=== PATIENT | male | born 1995 | race Caucasian/White ===

== ENCOUNTER 2020-01-25 13:47 | Outpatient (CLI) | payer BC, SELFPAY ==
--- NOTE | ~2020-01-25 | XR_ITS ---
EXAMINATION: XR forearm RT 2V DATE: 01/25/2020 14:08 INDICATION: Ulnar-sided right forearm pain. TECHNIQUE: AP an lateral views of the right forearm were obtained. COMPARISON: none FINDINGS: Alignment is normal. No fracture. Joint spaces are normal. Soft tissues are unremarkable. No elbow stephanie int effusion. IMPRESSION: 1. Negative right forearm radiographs. Reviewed, dictated and finalized at location A.
== END 2020-01-25 13:48 | disposition home or self-care (01) ==
PROVIDERS: PCP Physician Assistant; Visit Provider Physician Assistant
DX: M79.601 Pain in right arm (principal)
CPT/HCPCS: 73090

== ENCOUNTER 2021-08-05 13:43 | Emergency (ER) | payer BC, SELFPAY ==
--- NOTE | ~2021-08-05 | CT_ITS ---
EXAMINATION: CT cervical spine wo con DATE: 08/05/2021 14:13 INDICATION: Posterior head injury post fall while playing hockey TECHNIQUE: Computed tomography (CT) of the cervical spine was performed without intravenous contrast. Automated exposure control and iterative reconstruction technique were employed. The dose-length pro duct was 466.49 mGy-cm. COMPARISON: None FINDINGS: Mild levocurvature at the cervicothoracic junction. Sagittal alignment is normal. Vertebral body heig hts are normal. No fracture. Mild disc height loss at C5-C6 with suggestion of a disc bulge resulting in mild central canal stenosis. Additional mild disc height loss at T1-T2 and T2-T3. Small endplate osteophyte along the inferior endplate of C6. Moderate facet osteoarthritis on the left at C7-T1 thro ugh T2-T3. Mild facet osteoarthritis at several additional levels in the bilateral cervical and left upper thoracic spine. No neural foraminal stenosis. Cervical soft tissues are normal. Visualized airw ay and apices of lungs are clear. IMPRESSION: 1. No acute osseous abnormality. 2. Mild cervical thoracic levocurvature with mild cervical and upper thoracic spondylosis. Reviewed, dictated and finalized at location A. UCT SCIENTIST IMPRESSION: 1. No acute osseous abnormality. 2. Mild cervical thoracic levocurvature with mild cervical and upper thoracic s pondylosis.
[2021-08-05 13:48] VITALS: BP 155/96; PULSE 73; RESP 16; TEMP 36.2; O2SAT 99
--- NOTE | 2021-08-05 14:27 | ED.GENADULT ---
HPI - General Adult General Chief complaint: Head Injury Stated complaint: head injury Time Seen by Provider: 08/05/21 13:49 Source: RN notes reviewed History of Present Illness HPI narrative: Patient presents to emergency department from home for neck pain. Patient states he was playing hockey last night when his feet wrapped around him and he fell backwards striking his head on the ice states he was wearing a helmet he had no loss of consciousness he states he had a mild headache since that time he states that he has had neck pain states he injured his neck several years ago and was concerned as he had pain in his bilateral lower neck and came to the hospital for further evaluation states he does not take anything for the pain he denies any numbness or tingling in the extremities vision changes chest pain shortness of breath or any other symptoms of concern Related Data Allergies Allergy/AdvReac Type Severity Reaction Status Date / Time codeine Allergy Swelling Verified 08/05/21 14:20 NKDA Allergy Unknown Unknown Uncoded 08/05/21 14:20 NKFA Allergy Unknown Unknown Uncoded 08/05/21 14:20 Review of Systems Review of Systems: Gen.: Denies fevers or chills Eyes: Denies eye pain or visual change ENT: Denies congestion Respiratory: Denies shortness of breath or cough CV: Denies chest pain or palpitations GI: Denies abdominal pain nausea, emesis Musculoskeletal: See HPI Neuro: Reports mild headache denies loss of consciousness Skin: Denies rash Except as documented, all other systems reviewed and negative [facility] Past Medical History Medical History (Updated 08/05/21 @ 14:29 by Mendel Hines DO) Patient denies medical problems Social History Social History (Updated 08/05/21 @ 14:28 by Mendel Hines DO) Smoking status: Never smoker Exam Narrative: APPEARANCE: No acute distress, nontoxic, resting in bed EYES: EOMI HEENT: Normocephalic, atraumatic, TMs clear bilaterally nares patent Neck: Supple, no midline tenderness palpation temporal patient brought in for review muscle see 4 through 7 RESPIRATORY: No respiratory distress Clear to auscultation bilaterally with no rhonchi wheezing or rales. CARDIOVASCULAR: Regular rate and rhythm without murmurs rubs or gallops. ABDOMINAL: Soft, nontender, nondistended, no rebound or guarding MUSCULOSKELETAl: Moves all extremities. NEURO: Awake and alert x 4. Following commands, speech normal, no focal deficits muscle strength 5 out of 5 bilateral upper and lower extremities SKIN:: Warm, dry. No rashes lesions or abrasions PSYCHIATRIC: Normal affect/mood, Course Course Emergency Course: Discussed with patient results of workup and diagnosis. Discussed need for follow-up with primary care, proper use of medication, and reasons to return to the emergency department. Patient understands and agrees to current treatment plan Vital Signs Vital signs: Vital Signs Temperature 97.2 F L 08/05/21 13:48 Pulse Rate 73 08/05/21 13:48 Respiratory Rate 16 08/05/21 13:48 Blood Pressure 155/96 H 08/05/21 13:48 Pulse Oximetry 99 08/05/21 13:48 Temperature 97.2 F L 08/05/21 13:48 Pulse Rate 73 08/05/21 13:48 Respiratory Rate 16 08/05/21 13:48 Blood Pressure 155/96 H 08/05/21 13:48 Pulse Oximetry 99 08/05/21 13:48 Medical Decision Making Vital Signs Vital Signs: Vital Signs Temperature 97.2 F L 08/05/21 13:48 Pulse Rate 73 08/05/21 13:48 Respiratory Rate 16 08/05/21 13:48 Blood Pressure 155/96 H 08/05/21 13:48 Pulse Oximetry 99 08/05/21 13:48 Temperature 97.2 F L 08/05/21 13:48 Pulse Rate 73 08/05/21 13:48 Respiratory Rate 16 08/05/21 13:48 Blood Pressure 155/96 H 08/05/21 13:48 Pulse Oximetry 99 08/05/21 13:48 Imaging Data Radiologist's impression: ITS Impressions Cervical Spine CT 08/05/21 14:14 IMPRESSION: 1. No acute osseous abnormality. 2. Mild cervical thoracic levocurvature with mild cervical and upper
[2021-08-05] MEDS: IBUPROFEN 600 MG TABLET PO (14:31)
== END 2021-08-05 14:35 | disposition home or self-care (01) ==
PROVIDERS: Emergency Provider Emergency Medicine; PCP Family Medicine
DX: S16.1XXA Strain of muscle, fascia and tendon at neck level, initial encounter (principal); V00.211A Fall from ice-skates, initial encounter; Y93.22 Activity, ice hockey; M47.893 Other spondylosis, cervicothoracic region
CPT/HCPCS: 72125; 99283; 99284; A9270

== ENCOUNTER 2023-10-13 16:58 | Emergency (ER) | payer OTHER, SELFPAY ==
--- NOTE | ~2023-10-13 | XR_ITS ---
EXAMINATION: XR ankle LT min 3V DATE: 10/13/2023 17:13 INDICATION: Left ankle injury. TECHNIQUE: 4 views of left ankle were obtained. COMPARISON: None. FINDINGS: Bone alignment is normal. No acute fracture. 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 There is mild osteoarthritis of talonavicular joint. There is ankle soft tissue swelling. IMPRESSION: 1. No acute fracture. Reviewed, dictated and finalized at location E. IMPRESSION: 1. No acute fracture.
[2023-10-13 17:02] VITALS: BP 132/86; PULSE 84; RESP 18; TEMP 36.6; O2SAT 97
--- NOTE | 2023-10-13 17:04 | ED.LOWEXIN ---
HPI - Extremity Injury (Lower) General Chief Complaint: Extremity Injury, Lower Stated Complaint: L ankle pain Time Seen by Provider: 10/13/23 17:04 Source: patient Mode of arrival: ambulatory Limitations: no limitations History of Present Illness HPI Narrative: Akil is a 28-year-old male patient presenting to the ER today with complaints of left ankle pain after falling and rolling his ankle. He reports he is having pain to the lateral and medial ankle. Is having a lot of pain with dorsal flexion. This occurred this afternoon Related Data Allergies Allergy/AdvReac Type Severity Reaction Status Date / Time codeine Allergy Swelling Verified 10/13/23 17:01 Review of Systems Review of Systems: Pertinent positives per HPI. Patient denies any fever, chills, rash, headache, visual changes, dizziness, cough, runny nose, sore throat, shortness of breath, chest pain, palpitations, nausea, vomiting, diarrhea, constipation, abdominal pain, or any urinary issues. PMFSH Past Medical History Medical History Patient denies medical problems Social History Social History Smoking status: Never smoker Comments At the time of my signature, I reviewed and agree with the nursing past medical, surgical, social, and family history. There is no relevant family history pertinent to the patient complaint. Exam Narrative: General: Well-developed, well nourished, in no apparent distress Head: Normocephalic, atraumatic. Cardio: Regular rate and rhythm, s1 and s2 normal, no murmur appreciated. Resp: Clear to auscultation bilaterally, no rhonchi, rales, wheezing or rubs. Musculoskeletal: No deformity,tender to palpation over the medial and lateral left ankle, mild swelling noted when compared to the right ankle, grossly normal range of motion, muscle strength strong and equal, peripheral pulse strong, no edema, no cyanosis, sitting in a wheelchair. Course Course Emergency Course: Portions of this record may have been created with voice recognition software. Vital Signs Vital signs: Vital Signs Temperature 36.6 C 10/13/23 17: Pulse Rate 84 10/13/23 17: Respiratory Rate 18 10/13/23 17: Blood Pressure 132/86 10/13/23 17:02 Pulse Oximetry 97 10/13/23 17:02 Temperature 36.6 C 10/13/23 17:02 Pulse Rate 84 10/13/23 17:02 Respiratory Rate 18 10/13/23 17:02 Blood Pressure 132/86 10/13/23 17:02 Pulse Oximetry 97 10/13/23 17:02 Vital signs reviewed MDM - Extremity Injury (Lower) MDM Narrative Medical decision making narrative: At the time of visit patient is resting comfortably on the exam table. Patient appears to be nontoxic. Diagnostics: X-ray of the left ankle was negative for fracture. Plan: I suspect patient has a left ankle sprain. Ziggy wrap was applied. Supportive measures were discussed with the patient and they voiced understanding discharge instructions and agrees to treatment plan. Return precautions reviewed Differential Diagnosis Differential diagnosis: Likely ankle sprain and strain and ankle fracture Discharge Plan Discharge Clinical Impression: Left ankle sprain Qualifiers: Encounter type: initial encounter Involved ligament of ankle: calcaneofibular ligament Qualified Code(s): S93.412A - Sprain of calcaneofibular ligament of left ankle, initial encounter Patient Disposition: Home, Self-Care Condition: Stable Instructions: Antibiotic Form, Ankle Sprain (ED) Additional Instructions: X-rays negative for any sign of fracture or malalignment. Rest, ice, elevate, and wear ziggy wrap as directed Tylenol/motrin for pain as discussed. Gradually bear weight No running or sports until healed. Follow up with your PCP if symptoms persist more than 1 week. Prescriptions: No Action cyclobenzaprine 10 mg tablet 10 mg PO TID P
== END 2023-10-13 18:05 | disposition home or self-care (01) ==
LOC: ANHED 18:01
PROVIDERS: Emergency Provider Nurse Practitioner Family; PCP Family Medicine
DX: S93.412A Sprain of calcaneofibular ligament of left ankle, initial encounter (principal); W19.XXXA Unspecified fall, initial encounter; X50.9XXA Other and unspecified overexertion or strenuous movements or postures, initial encounter
CPT/HCPCS: 73610; 99283